=== PATIENT | female | born 1950 | race Caucasian/White ===

== ENCOUNTER 2018-05-02 09:26 | Emergency (ER) | payer OTHER ==
[~2018-05-02] VITALS: Ht 162.6 cm; Wt 97.5 kg
[~2018-05-02 09:26] MED LIST: VITAMIN D31000 I1 PO
[2018-05-02] MEDS ORDERED: TRAMADOL HCL50 M1 PO (10:43)
[2018-05-02] MEDS ORDERED: CYCLOBENZAPRINE10 M1 PO (10:43)
[2018-05-02] MEDS ORDERED: MEDROL4 M2 PO (10:43)
--- NOTE | 2018-05-02 10:44 | ED NECK/BACK PAIN COMPLAINT ---
History of Present Illness General Chief Complaint: General Adult Stated Complaint: RIGHT FOOT PAIN, LOSS OF ROM IN NECK, X 48 HRS Source: patient Exam Limitations: no limitations Vital Signs & Intake/Output Vital Signs & Intake/Output Vital Signs Date Time Temp Pulse Resp B/P B/P Pulse O2 O2 Flow FiO2 Mean Ox Delivery Rate 05/02 1052 97.7 91 15 137/80 97 Room Air Room Air 05/02 0932 97.8 104 20 146/84 96 Room Air Allergies Coded Allergies: vancomycin (COLITIS 05/02/18) Reconcile Medications CHOLECALCIFEROL (VITAMIN D3) (Vitamin D3) 1,000 UNIT CAPSULE 1 SGL PO DAILY VITAMIN SUPPORT (Reported) Cyclobenzaprine HCl 10 MG TABLET 1 TAB PO TID SPASMS Methylprednisolone. (Medrol) 4 MG TAB.DS.PK 1 DP PO AD sciatica 6 on day 1 then reduce by one tablet daily until gone Tramadol HCl 50 MG TABLET 1-2 TAB PO BIDP PRN PAIN Triage Note: TRIAGE: PT TO ER WITH DAUGHTER C/C PAIN FROM R BUTTOCK WHICH RADIATES DOWN TO R FOOT. THOUGHT MAYBE IT WAS SCIATICA BUT THEN IT WAS GETTING WORSE SO THOUGHT IT MIGHT BE SOMETHING ELSE. ALSO REPORTS NUMBNESS TO R THIGH AND STIFF NECK X 1 WK WITH DECREASED ROM WHEN TURNING TO LEFT SIDE. Triage Nurses Notes Reviewed? yes Onset: Abrupt Duration: week(s): (1), constant Timing: recent history Quality/Severity: moderate, severe Loss of Consciousness: no loss of consciousness HPI: 67-year-old female comes into the emergency room for further evaluation of right -sided low back pain radiating down her right leg. History of sciatica and feels the same but pain is more severe in nature. Sharp. Denies any urinary bowel dysfunction or weakness. Pain when she ambulates of any sort. She also complains of some left-sided neck pain worse with range of motion. Denies any falls or trauma recently. Denies any chest pain shortness of breath lightheaded dizziness fever chills vomiting or abdominal pain. She comes in for further evaluation. (Derek Parra) Past History Travel History Traveled to [place] past 21 day No Medical History Any Pertinent Medical History? see below for history Neurological: NONE EENT: NONE Cardiovascular: NONE Respiratory: NONE Gastrointestinal: hemangiomas Hepatic: NONE Renal: NONE Musculoskeletal: osteoarthritis, sciatica, POLIO Psychiatric: NONE Endocrine: hypothyroidism, GRAVES DISEASE Blood Disorders: NONE Cancer(s): NONE REGIONAL CONTROLLER/Reproductive: NONE Other Medical Hx: postpolio syndrome Surgical History Surgical History: RIGHT FOOT AND ANKLE TENDON TRANSFER Psychosocial History What is your primary language Wolof Tobacco Use: Quit >30 days ago ETOH Use: denies use Illicit Drug Use: denies illicit drug use Family History Hx Contributory? No (Derek Parra) Review of Systems Review of Systems Constitutional: Reports: no symptoms. Eyes: Reports: no symptoms. Ears, Nose, Throat, Mouth: Reports: no symptoms. Respiratory: Reports: no symptoms. Cardiovascular: Reports: no symptoms. Gastrointestinal/Abdominal: Reports: no symptoms. Musculoskeletal: Reports: see HPI. Skin: Reports: no symptoms. Neurological/Psychological: Reports: no symptoms. All Other Systems: Reviewed and Negative (Derek Parra) Physical Exam Physical Exam General Appearance: well developed/nourished, mild distress Head: atraumatic Eyes: Bilateral: normal appearance. Ears, Nose, Throat, Mouth: hearing grossly normal, moist mucous membrane Neck: supple, limited range of motion, No bruits, no rash, Respiratory: no respiratory distress Back: normal inspection Extremities: normal range of motion Motor: Deficit L4 Right: No Deficit L4 Left: No Deficit L5 Right: No Deficit L5 Left: No Deficit S1 Right: No Deficit S1 Right: No Neurologic/Psych: awake, alert, oriented x 3, normal mood/affect Skin: intact, normal color, warm/dry Core Measures CVA/TIA Diagnosis: No (Derek Parra) Progress Differential Diagnosis: cauda equina syn, herniated disc, myofascial strain, sciatica, spinal cord inj, thoracic outlet syn Plan of Care: 05/02/2018 11:49:49 AM Patient clinically looks well. Patient is no apparent distress. Patient is nontoxic-appearing. No evidence of motor weakness. Symptoms are most consistent with sciatica. Neck pain seems muscular in nature. Worse with certain movements. (Derek Parra) Departure Departure Disposition: HOME OR SELF CARE Condition: Stable Clinical Impression Primary Impression: Sciatica Secondary Impressions: Cervical paraspinal muscle spasm Referrals: Elisha Hairston APRN (PCP/Family) Additional Instructions: Take Medrol Dosepak, Flexeril, and tramadol as prescribed. Follow-up with your orthopedic doctor. Return if any concerns worsening symptoms. Please go over all results of today's visit with your primary care doctor. Contact your primary care doctor to let them know you were here in the emergency room. There may be nonspecific findings which may not be related to your visit today here in the emergency room but may require further evaluation and chronic monitoring by your primary care doctor. If you had a laceration today the chance of foreign body always remains. You should follow-up with your primary care doctor for recheck in 3-5 days for a wound check. If you had an x-ray done there is a chance that a fracture could have been missed on initial read and you should follow-up with your primary care doctor for repeat x-rays if symptoms persist. If your blood pressure was elevated here in the emergency room please have rechecked by nelda primary care doctor within the next 48. If you were prescribed a narcotic here in the emergency room or any type of controlled substances you're not allowed to drive while taking this medication or operate any type of heavy machinery. Narcotics can make you feel lightheaded dizziness nausea and can cause constipation. You may need to poultry picking machine tender a stool softener. Thank you for choosing [facility] emergency room. Please return to the emergency room immediately if you have any other concerns worsening of symptoms. Departure Forms: Customer Survey General Discharge Information Prescriptions: Current Visit Scripts Methylprednisolone. (Medrol) 1 DP PO AD #1 DP 6 on day 1 then reduce by one tablet daily until gone Cyclobenzaprine HCl 1 TAB PO TID #30 TAB Tramadol HCl 1-2 TAB PO BIDP PRN PAIN #15 TAB (Derek Parra) PA/PREVENTION RN Co-Sign Statement Statement: ED Attending supervision documentation- [X] I saw and evaluated the patient. I have also reviewed all the pertinent lab results and diagnostic results. I agree with the findings and the plan of care as documented in the PA's/PREVENTION RN's documentation. [] I have reviewed the ED Record and agree with the PA's/PREVENTION RN's documentation. [] Additions or exceptions (if any) to the PAs/PREVENTION RN's note and plan are summarized below: [] (Noris ROMERO,Marco A Kemp)
[2018-05-02 10:52] VITALS: BP 137/80
== END 2018-05-02 10:52 ==
LOC: ERH 09:26
DX: M54.41 Lumbago with sciatica, right side (principal); M62.838 Other muscle spasm